=== PATIENT | male | born 1965 | race African-American/Black ===

== ENCOUNTER 2021-08-17 17:29 | Emergency (ER) | payer OTHER ==
--- NOTE | 2021-08-17 23:05 | EDM.PDOC ---
ED HPI GENERAL MEDICAL PROBLEM - General Chief Complaint: General Stated Complaint: REFERRED FOR LOW PLATELETS Time Seen by Provider: 08/17/21 18:33 Source of Information: Reports: Patient History Limitations: Reports: No Limitations - History of Present Illness INITIAL COMMENTS - FREE TEXT/NARRATIVE: Jagdish is a 56-year-old male who presents to the ED for evaluation of low plate lets. Patient saw his regular provider at [facility] in [place], [place] and had blood work that showed that he had a platelet count of 14,000. This is new for the patient and he was told to come to the ED for evaluation. He has not had any symptoms including breathing difficulty, bruising, rash, bleeding from the gums, concentrated urine, back pain or abdominal pain. Does have a history of chronic neck pain with radiculopathy which he is on a chronic pain medication for. He does not take any medication that would account for low platelet count. Generalized Pain Score (Numeric/FACES): 10 - Related Data Allergies Allergy/AdvReac Type Severity Reaction Status Date / Time No Known Allergies Allergy Verified 08/17/21 17:57 Home Meds: Home Meds Escitalopram [Lexapro] 10 mg PO DAILY 08/17/21 [History] Losartan [Cozaar] 50 mg PO DAILY 08/17/21 [History] Triamcinolone Acetonide [Triamcinolone Acetonide 0.1% Crm] 1 applic TOP BID 08/17/21 [History] Zolpidem Tartrate 10 mg PO BEDTIME 08/17/21 [History] atorvaSTATin [Lipitor] 40 mg PO BEDTIME 08/17/21 [History] oxyCODONE HCl/Acetaminophen [Endocet 7.5-325 mg Tablet] 1 each PO BID PRN 08/17/21 [History] Past Medical History HEENT History: Reports: Impaired Vision Cardiovascular History: Reports: High Cholesterol, Hypertension Respiratory History: Reports: Asthma Musculoskeletal History: Reports: Neck Pain, Chronic - Past Surgical History Neurological Surgical History: Reports: C-Spine Social & Family History - Tobacco Use Tobacco Use Status *Q: Never Tobacco User - Caffeine Use Caffeine Use: Reports: None - Recreational Drug Use Recreational Drug Use: No ED ROS GENERAL - Review of Systems Review Of Systems: See Below Constitutional: Reports: No Symptoms HEENT: Reports: No Symptoms Respiratory: Reports: No Symptoms Cardiovascular: Reports: No Symptoms Endocrine: Reports: No Symptoms GI/Abdominal: Reports: No Symptoms : Reports: No Symptoms Musculoskeletal: Reports: No Symptoms Skin: Reports: No Symptoms Neurological: Reports: No Symptoms Psychiatric: Reports: No Symptoms Hematologic/Lymphatic: Reports: No Symptoms Immunologic: Reports: No Symptoms ED EXAM, GENERAL - Physical Exam Exam: See Below Exam Limited By: No Limitations General Appearance: Alert, No Apparent Distress Eye Exam: Bilateral Eye: EOMI, PERRL Throat/Mouth: Normal Inspection, Normal Oropharynx, No Airway Compromise Head: Atraumatic, Normocephalic Neck: Normal Inspection, Supple, Non-Tender, Full Range of Motion. No: Lymphadenopathy (R), Lymphadenopathy (L) Respiratory/Chest: No Respiratory Distress, Lungs Clear, Normal Breath Sounds Cardiovascular: Normal Peripheral Pulses, Regular Rate, Rhythm, No Murmur Peripheral Pulses: 2+: Radial (L), Radial (R) GI/Abdominal: Normal Bowel Sounds, Soft, Non-Tender, No Distention Extremities: Normal Inspection Neurological: Alert, Oriented, Normal Cognition, No Motor/Sensory Deficits Psychiatric: Normal Affect, Normal Mood Skin Exam: Warm, Dry, Intact, Normal Color, No Rash Course - Vital Signs Last Recorded V/S: Last Vital Signs Temp 36.8 C 08/17/21 18:02 Pulse 74 08/17/21 21:51 Resp 16 08/17/21 18:02 BP 138/81 08/17/21 21:51 Pulse Ox 96 08/17/21 21:51 - Orders/Labs/Meds Orders: Active Orders 24 hr Category Date Time Status HCV ANTIBODY Stat Lab 08/17/21 19:00 Received Labs: Laboratory Tests 08/17/21 08/17/21 08/17/21 Range/Units 19:00 19:00 19:00 WBC 9.7 (4.5-11.0) K/uL RBC 4.98 (4.30-5.90) M/uL Hgb 13.3 (12.0-15.0) g/dL Hct 40.9 (40.0-54.0) % MCV 82 (80-98) fL MCH 27 (27-31) pg MCHC 33 (32-36) % Plt Count 14 L* (150-400) K/uL PT 10.4 (9.2-10.6) sec INR 1.0 APTT 24.1 (21.4-31.8) sec Sodium 143 (140-148) mmol/L Potassium 3.8 (3.6-5.2) mmol/L Chloride 106 (100-108) mmol/L Carbon Dioxide 27 (21-32) mmol/L Anion Gap 10.2 (5.0-14.0) mmol/L BUN 18 (7-18) mg/dL Creatinine 1.1 (0.8-1.3) mg/dL Est Cr Clr Drug Dosing 77.96 mL/min Estimated GFR (MDRD) > 60 (>60) Glucose 103 (74-106) mg/dL Calcium 8.9 (8.5-10.1) mg/dL Total Bilirubin 0.2 (0.2-1.0) mg/dL AST 14 L (15-37) U/L ALT 36 (12-78) U/L Alkaline Phosphatase 86 (46-116) U/L Total Protein 6.5 (6.4-8.2) g/dL Albumin 3.8 (3.4-5.0) g/dL Globulin 2.7 (2.3-3.5) g/dL Albumin/Globulin Ratio 1.4 (1.2-2.2) Urine Color (YELLOW) Urine Appearance (CLEAR) Urine pH (5.0-8.0) Ur Specific Cum[place] (1.008-1.030) Urine Protein (NEGATIVE) mg/dL Urine Glucose (UA) (NEGATIVE) mg/dL Urine Ketones (NEGATIVE) mg/dL Urine Occult Blood (NEGATIVE) Urine Nitrite (NEGATIVE) Urine Bilirubin (NEGATIVE) Urine Urobilinogen (0.2-1.0) EU/dL Ur Leukocyte Esterase (NEGATIVE) Urine RBC (0-5) Urine WBC (0-5) Ur Epithelial Cells Amorphous Sediment Urine Bacteria Urine Mucus HIV-1 Ab Rapid Screen (NON-REACT.) 08/17/21 08/17/21 Range/Units 19:00 19:41 WBC (4.5-11.0) K/uL RBC (4.30-5.90) M/uL Hgb (12.0-15.0) g/dL Hct (40.0-54.0) % MCV (80-98) fL MCH (27-31) pg MCHC (32-36) % Plt Count (150-400) K/uL PT (9.2-10.6) sec INR APTT (21.4-31.8) sec Sodium (140-148) mmol/L Potassium (3.6-5.2) mmol/L Chloride (100-108) mmol/L Carbon Dioxide (21-32) mmol/L Anion Gap (5.0-14.0) mmol/L BUN (7-18) mg/dL Creatinine (0.8-1.3) mg/dL Est Cr Clr Drug Dosing mL/min Estimated GFR (MDRD) (>60) Glucose (74-106) mg/dL Calcium (8.5-10.1) mg/dL Total Bilirubin (0.2-1.0) mg/dL AST (15-37) U/L ALT (12-78) U/L Alkaline Phosphatase (46-116) U/L Total Protein (6.4-8.2) g/dL Albumin (3.4-5.0) g/dL Globulin (2.3-3.5) g/dL Albumin/Globulin Ratio (1.2-2.2) Urine Color Yellow (YELLOW) Urine Appearance Clear (CLEAR) Urine pH 7.5 (5.0-8.0) Ur Specific [place] 1.025 (1.008-1.030) Urine Protein Negative (NEGATIVE) mg/dL Urine Glucose (UA) Negative (NEGATIVE) mg/dL Urine Ketones Trace H (NEGATIVE) mg/dL Urine Occult Blood Negative (NEGATIVE) Urine Nitrite Negative (NEGATIVE) Urine Bilirubin Negative (NEGATIVE) Urine Urobilinogen 2.0 H (0.2-1.0) EU/dL Ur Leukocyte Esterase Negative (NEGATIVE) Urine RBC 0-5 (0-5) Urine WBC 0-5 (0-5) Ur Epithelial Cells Rare Amorphous Sediment Rare Urine Bacteria Rare Urine Mucus Rare HIV-1 Ab Rapid Screen Non-reactive (NON-REACT.) - Re-Assessments/Exams Free Text/Narrative Re-Assessment/Exam: 08/17/21 23:05 reviewed the patient's labs showing a normal leukocyte count of 9.7, hemoglobin of 13.3, hematocrit of 40.9 and a platelet count of 18,000. The blood smear shows very large platelets but not megakaryocytes. There is no evidence for schistocytes, bite cells, sickle cells, or abnormal red cells. There is no evidence for hyper segmented neutrophils. The comprehensive metabolic panel is unremarkable and urinalysis is normal including specific gravity. HIV is negative and HCV is negative. 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 It would be a little unusual at this age of his life to have a genetic mutation causing giant platelets, however, that is still in the differential. The patient should follow-up with his primary provider and will likely need to be referred to hematology for further work-up. I have vacated against the use of any NSAIDs as we do not want to promote bleeding. This should also include the antiplatelet drugs like Plavix or Brilinta. The patient should absolutely avoid aspirin. Indications return to the ED were discussed and he suitable for discharge in satisfactory condition. Departure - Departure Time of Disposition: 23:00 Disposition: Home, Self-Care 01 Clinical Impression: Thrombocytopenia - Discharge Information Instructions: Thrombocytopenia Referrals: LINA JAIMES MD ([facility]) [Other] Care Plan Goals: Your work-up today has shown that you do have a low platelet count but other blood work that would suggest a cause was all negative including HIV, hepatitis C, your total blood count for infection. You likely have idiopathic thrombocytopenia purpura or ITP. I would recommend following up with your doctor at [facility] for further testing. My recommendation is you if you start to have any unexplained bleeding to return to the ED for reevaluation. It does not usually get better with drug transfusions and in fact it can make it much worse. Sepsis Event Note (ED) - Evaluation Sepsis Screening Result: No Definite Risk - Focused Exam Vital Signs: Vital Signs Temp Pulse Resp BP Pulse Ox 08/17/21 21:51 74 138/81 96 08/17/21 20:33 75 138/83 97 08/17/21 19:32 80 153/93 H 08/17/21 18:02 36.8 C 79 16 139/93 H 94 L - Problem List & Annotations (1) Thrombocytopenia SNOMED Code(s): 435937489 Code(s): D69.6 - THROMBOCYTOPENIA, UNSPECIFIED Status: Acute Priority: High Current Visit: Yes - Problem List Review Problem List Initiated/Reviewed/Updated: Yes - My Orders Last 24 Hours: My Active Orders 08/17/21 19:00 HCV ANTIBODY Stat - Assessment/Plan Last 24 Hours: My Active Orders 08/17/21 19:00 HCV ANTIBODY Stat
== END 2021-08-17 23:18 | disposition home or self-care (01) ==
LOC: JP.ED 17:29
DX: D69.6 Thrombocytopenia, unspecified (principal); E78.00 Pure hypercholesterolemia, unspecified; I10 Essential (primary) hypertension; J45.909 Unspecified asthma, uncomplicated; Z79.899 Other long term (current) drug therapy
CPT/HCPCS: 36415; 80053; 81001; 85027; 85610; 85730; 86803; 87449; 99283

== ENCOUNTER 2021-08-24 15:52 | Emergency (ER) | payer OTHER ==
[2021-08-24] MEDS ORDERED: Dexamethasone 2 MG Tab PO ONE (18:32)
--- NOTE | 2021-08-24 18:42 | EDM.PDOC ---
ED HPI GENERAL MEDICAL PROBLEM - General Chief Complaint: General Stated Complaint: LOW PLATELET LEVEL Time Seen by Provider: 08/24/21 17:24 Source of Information: Reports: Patient, Family, Old Records, RN Notes Reviewed History Limitations: Reports: No Limitations - History of Present Illness INITIAL COMMENTS - FREE TEXT/NARRATIVE: 56 yo to ed from nurse line for low plt. recent dx of thrombocytopenia on 08/17, had lab recheck today no at 6, he is asymptomatic to bleeding no Mcmullen - Related Data Allergies Allergy/AdvReac Type Severity Reaction Status Date / Time No Known Allergies Allergy Verified 08/24/21 16:35 Home Meds: Home Meds Escitalopram [Lexapro] 10 mg PO DAILY 08/17/21 [History] Losartan [Cozaar] 50 mg PO DAILY 08/17/21 [History] Triamcinolone Acetonide [Triamcinolone Acetonide 0.1% Crm] 1 applic TOP BID 08/17/21 [History] Zolpidem Tartrate 10 mg PO BEDTIME 08/17/21 [History] atorvaSTATin [Lipitor] 40 mg PO BEDTIME 08/17/21 [History] oxyCODONE HCl/Acetaminophen [Endocet 7.5-325 mg Tablet] 1 each PO BID PRN 08/17/21 [History] dexAMETHasone [Dexamethasone] 40 mg PO DAILY #30 tablet 08/24/21 [Rx] Past Medical History HEENT History: Reports: Impaired Vision Cardiovascular History: Reports: High Cholesterol, Hypertension Respiratory History: Reports: Asthma Musculoskeletal History: Reports: Neck Pain, Chronic Psychiatric History: Reports: Depression - Past Surgical History Neurological Surgical History: Reports: C-Spine Social & Family History - Tobacco Use Tobacco Use Status *Q: Never Tobacco User - Caffeine Use Caffeine Use: Reports: None ED ROS GENERAL - Review of Systems Review Of Systems: See Below Constitutional: Reports: No Symptoms HEENT: Reports: No Symptoms Respiratory: Reports: No Symptoms Cardiovascular: Reports: No Symptoms GI/Abdominal: Reports: No Symptoms : Reports: No Symptoms Musculoskeletal: Reports: No Symptoms Skin: Reports: No Symptoms Neurological: Reports: No Symptoms ED EXAM, GENERAL - Physical Exam Exam: See Below Exam Limited By: No Limitations General Appearance: Alert, WD/WN, No Apparent Distress Respiratory/Chest: No Respiratory Distress Course - Vital Signs Last Recorded V/S: Last Vital Signs Temp 97.3 F 08/24/21 16:42 Pulse 67 08/24/21 16:42 Resp 16 08/24/21 16:42 BP 135/88 08/24/21 16:42 Pulse Ox 97 08/24/21 16:42 - Orders/Labs/Meds Orders: Active Orders 24 hr Category Date Time Status FIBRINOGEN [COAG] Stat Lab 08/24/21 18:33 Ordered HAPTOGLOBIN Urgent Lab 08/24/21 18:33 Ordered INR,PT,PROTHROMBIN TIME [COAG] Urgent Lab 08/24/21 18:33 Ordered LACTATE DEHYDROGENASE,LDH [CHEM] Stat Lab 08/24/21 18:33 Ordered PTT,PARTIAL THROMBOPLSTIN TIME [COAG] Stat Lab 08/24/21 18:33 Ordered Meds: Medications Discontinued Medications Generic Name Dose Route Start Last Admin Trade Name Leann PRN Reason Stop Dose Admin Dexamethasone 40 mg 08/24/21 18:32 Dexamethasone 2 Mg Tab PO 08/24/21 18:33 ONETIME ONE Departure - Departure Time of Disposition: 18:45 Disposition: Home, Self-Care 01 Condition: Fair Clinical Impression: Thrombocytopenia - Discharge Information Referrals: PCP,None [Primary Care Provider] - Additional Instructions: please report for lab work in the morning after 7 am and wait to talk to me with results Sepsis Event Note (ED) - Evaluation Sepsis Screening Result: No Definite Risk - Focused Exam Vital Signs: Vital Signs Temp Pulse Resp BP Pulse Ox 08/24/21 16:42 97.3 F 67 16 135/88 97 08/24/21 16:25 97.3 F 67 16 135/88 97 - My Orders Last 24 Hours: My Active Orders 08/24/21 18:33 FIBRINOGEN [COAG] Stat HAPTOGLOBIN Urgent INR,PT,PROTHROMBIN TIME [COAG] Urgent LACTATE DEHYDROGENASE,LDH [CHEM] Stat PTT,PARTIAL THROMBOPLSTIN TIME [COAG] Stat - Assessment/Plan Last 24 Hours: My Active Orders 08/24/21 18:33 FIBRINOGEN [COAG] Stat HAPTOGLOBIN Urgent INR,PT,PROTHROMBIN TIME [COAG] Urgent LACTATE DEHYDROGENASE,LDH [CHEM] Stat PTT,PARTIAL THROMBOPLSTIN TIME [COAG] Stat Plan: assessment: thrombocytopenia consider ITP Plan:Called discussed the case with Dr. Damico oncology at [facility] at 18:30 recommend admission but that is not an option during the pandemic so will try outpatient treatment first. 40 mg dexamethasone po for 4 days wtih the following labs INR, PTT fibrinogen and haptoglobin. repeat cbc in am. If the plt go down will need admission for IVIG, if the plt go up f/u with oncology on friday
== END 2021-08-24 19:11 | disposition home or self-care (01) ==
LOC: JP.ED 15:52
DX: D69.6 Thrombocytopenia, unspecified (principal)
CPT/HCPCS: 36415; 83010; 83615; 85384; 85610; 85730; 99284; J8540

== ENCOUNTER 2022-05-06 07:56 | Emergency (ER) | payer OTHER ==
[2022-05-06 09:01] LABS: CORONAVIRUS COVID-19 NAA POSITIVE (NEGATIVE)
== END 2022-05-06 09:30 | disposition home or self-care (01) ==
LOC: JP.ED 07:56
DX: U07.1 COVID-19 (principal); I10 Essential (primary) hypertension
CPT/HCPCS: 0241U; 99281; 99283

== ENCOUNTER 2025-05-02 12:05 | Emergency (ER) | payer MEDICAID, OTHER | END 2025-05-02 13:52 | disposition home or self-care (01) | LOC: JP.ED 12:05 | DX: R05.1 Acute cough (principal); I10 Essential (primary) hypertension | CPT/HCPCS: 87426-QW; 99283 ==

== ENCOUNTER 2025-05-08 09:48 | Emergency (ER) | payer MEDICAID | END 2025-05-08 10:41 | disposition home or self-care (01) | LOC: JP.ED 09:48 | DX: U07.1 COVID-19 (principal); I10 Essential (primary) hypertension; Z79.899 Other long term (current) drug therapy; Z86.16 Personal history of COVID-19 | CPT/HCPCS: 99283 ==